=== PATIENT | male | born 1955 | race Caucasian/White ===

== ENCOUNTER 2019-11-16 06:30 | Day surgery (SDC) | payer MEDICARE, OTHER ==
[2019-11-16] MEDS ORDERED: Sodium Chloride 0.9% 1,000 ML IV SCH (07:00)
[2019-11-16] MEDS ORDERED: Midazolam 1 MG/ML 2 ML SDV ONE (07:27)
[2019-11-16] MEDS ORDERED: fentaNYL 100 MCG/2 ML SDV ONE (07:27)
[2019-11-16] MEDS ORDERED: Propofol 200 MG/20 ML SDV ONE (07:27)
--- NOTE | 2019-11-17 03:13 | OR ---
DATE OF PROCEDURE: 11/16/2019 SURGEON: Juan Pablo Collado MD PROCEDURE: Colonoscopy. FINDINGS: Diverticulosis, mild, limited to sigmoid colon. COMPLICATIONS: None. [employer] CONSULTANT: None. PREOPERATIVE DIAGNOSES: Family history of colorectal cancer and history of colon polyps. POSTOPERATIVE DIAGNOSES: Family history of colorectal cancer and history of colon polyps. RISKS: Risks, benefits, alternatives, and limitations including, but not limited to infection, bleeding, and perforation were explained to the patient, who wished to proceed. PROCEDURE IN DETAIL: The patient was placed in left lateral decubitus position. Digital rectal exam was performed without abnormality. The scope was introduced and advanced atraumatically to the ileocecal valve. A photo was taken of this. The ileum was cannulated. No abnormalities were noted. Scope was brought back through the ascending, transverse, descending colon, and retroflexed. No polyps. No masses. No old or new blood. Diverticulosis was described as mild, limited to sigmoid colon only without evidence of diverticulitis or bleeding. No abnormalities on retroflexion. The patient tolerated the procedure well. Juan Pablo Collado MD /[id number]
== END 2019-11-16 09:35 | disposition home or self-care (01) ==
LOC: JP.SDS 06:30
PROVIDERS: ATTEND Surgery
DX: Z12.11 Encounter for screening for malignant neoplasm of colon (principal); K57.30 Diverticulosis of large intestine without perforation or abscess without bleeding; I11.0 Hypertensive heart disease with heart failure; E11.9 Type 2 diabetes mellitus without complications; I50.9 Heart failure, unspecified; Z80.0 Family history of malignant neoplasm of digestive organs; Z86.010 Personal history of colon polyps
CPT/HCPCS: 45378; J2250; J2704; J3010; J7030